=== PATIENT | female | born 1940 | race Caucasian/White ===

== ENCOUNTER → 2016-10-15 12:38 | Outpatient (CLI) | payer MEDICARE, BC | END | disposition home or self-care (01) | LOC: D.RAD 12:38 | DX: T17.928A Food in respiratory tract, part unspecified causing other injury, initial encounter (principal) ==

== ENCOUNTER → 2016-10-21 13:34 | Outpatient (CLI) | payer MEDICARE, BC | END | disposition home or self-care (01) | LOC: D.RT 13:34 | DX: J44.9 Chronic obstructive pulmonary disease, unspecified (principal) ==

== ENCOUNTER → 2017-11-17 09:37 | Outpatient (CLI) | payer MEDICARE, BC | END | disposition home or self-care (01) | LOC: D.RT 09:37 | DX: J44.9 Chronic obstructive pulmonary disease, unspecified (principal) ==

== ENCOUNTER → 2018-10-16 13:11 | Outpatient (CLI) | payer MEDICARE, BC | END | disposition home or self-care (01) | LOC: D.RAD 13:11 → D.RT 15:30 | PROVIDERS: ATTEND Internal Medicine Pulmonary Disease | DX: J44.9 Chronic obstructive pulmonary disease, unspecified (principal) ==

== ENCOUNTER → 2019-12-07 11:56 | Outpatient (CLI) | payer MEDICARE, BC | END | disposition home or self-care (01) | LOC: D.LAB 11:56 | PROVIDERS: ATTEND Internal Medicine Pulmonary Disease | DX: Z11.59 Encounter for screening for other viral diseases (principal) ==

== ENCOUNTER → 2019-12-10 12:02 | Outpatient (CLI) | payer MEDICARE, BC | END | disposition home or self-care (01) | LOC: D.RT 12:02 | PROVIDERS: ATTEND Internal Medicine Pulmonary Disease | DX: Z11.59 Encounter for screening for other viral diseases (principal) ==

== ENCOUNTER 2020-07-26 13:27 | Inpatient (IN) | payer MEDICARE, BC ==
[~2020-07-26] VITALS: Ht 162.6 cm; Wt 68.0 kg
[2020-07-26 13:42] VITALS: BP 144/72
[2020-07-26 14:12] LABS: BASOPHILS 0.3 % (0-2); EOSINOPHILS 0.3 % (0-7); HEMATOCRIT 46.3 % (36.0-48.0); HEMOGLOBIN 15.5 g/dL (12-16); LYMPHOCYTES 5.2 % (15-50); MCH 32.4 pg (26.0-34.0); MCHC 33.4 g/dL (31.0-37.0); NEUTROPHILS 89.2 % (40-80); PLATELET COUNT 245 10x3/uL (130-400); RBC 4.77 10x6/uL (4.00-5.40); RDW 12.6 % (11.5-14.5); WBC 14.5 10x3/uL (4.8-10.8)
[2020-07-26] MEDS ORDERED: FLUTICASONE PRO16 GM NS (14:17)
[2020-07-26] MEDS ORDERED: TRELEGY ELLIPT1 EACH (14:17)
[2020-07-26] MEDS ORDERED: IPRAT-ALBUT 0.5-3 ML (14:17)
[2020-07-26] MEDS ORDERED: BUMETANIDE1 MG (14:18)
[2020-07-26] MEDS ORDERED: PREDNISONE10 MG (14:19)
[2020-07-26] MEDS ORDERED: MUCINEX DM ER1 EAC1 (14:19)
[2020-07-26] MEDS ORDERED: KLOR-CON 1010 MEQ (14:19)
[2020-07-26 14:20] LABS: CALC OSMOLALITY 278 mosm/kg (275-300); CALCIUM 9.7 mg/dL (8.5-10.1); CARBON DIOXIDE 33.2 mmol/L (21.0-32.0); CHLORIDE - SERUM 103 mmol/L (98-107); CREATININE - SERUM 0.9 mg/dL (0.6-1.3); GLUCOSE 133 mg/dL (74-106); SODIUM 139 mmol/L (136-145); UREA NITROGEN 10 mg/dL (7-18); eGFR NON AFRICAN AMERICAN 64 mL/min (90-120)
[2020-07-26 14:23] LABS: APTT 22.4 SECONDS (22.8-39.4); INR 1.07 (0.85-1.17); PROTIME 12.8 SECONDS (11.6-15.0)
[2020-07-26 14:24] LABS: D-DIMER-QUANTITATIVE 1.08 ug/mLFEU (0.20-0.54)
[2020-07-26 14:57] LABS: ALBUMIN 3.8 g/dL (3.4-5.0); ALKALINE PHOSPHATASE 55 U/L (30-120); ALT (SGPT) 51 U/L (10-68); BILIRUBIN - TOTAL 0.65 mg/dL (0.2-1.3); CKMB 2.5 U/L (0.0-3.6); CREATINE KINASE 138 UL (21-215); PRO BNP 412 pg/mL (0-450); PROTEIN - SERUM 7.5 g/dL (6.4-8.2)
[2020-07-26 15:01] LABS: TROPONIN-I 0.189 ng/mL (0.000-0.060)
--- NOTE | 2020-07-26 19:10 | NUR ---
REPORT RECEIVED FROM DARÍO WEST PT ON BEDSIDE COMMODE, URINATING. SHE IS ON 6L NC, STATES SHE NORMALLY IS ON 5L AT HOME. ON PHOTOGRAMMETRIC TECHNICIAN, SINUS RHYTHM WITH RATE OF 95. CALL LIGHT WITHIN REACH, BED LOW.
--- NOTE | 2020-07-26 19:30 | NUR ---
PT OFF OF BEDSIDE COMMODE
[2020-07-26 20:00] VITALS: BP 130/79
[2020-07-26 20:15] LABS: CKMB 3.4 U/L (0.0-3.6); CREATINE KINASE 173 UL (21-215)
[2020-07-26 20:16] LABS: TROPONIN-I 0.274 ng/mL (0.000-0.060)
[2020-07-26 21:00] VITALS: BP 129/99
[2020-07-26 22:00] VITALS: BP 137/74
[2020-07-26 23:00] VITALS: BP 130/69
[2020-07-27] VITALS (10 sets, daily range): BP systolic 104–154; BP diastolic 55–93; BMI 25.8
[2020-07-27 03:17] LABS: CKMB 3.9 U/L (0.0-3.6); CREATINE KINASE 171 UL (21-215)
[2020-07-27 03:20] LABS: TROPONIN-I 0.189 ng/mL (0.000-0.060)
--- NOTE | 2020-07-27 04:45 | NUR ---
PT UP TO BEDSIDE COMMODE WITH STEADY GAIT. CHANGED OUT OF CLOTHING TO HOSPITAL GOWN. CALL LIGHT WITHIN REACH, PT STATES SHE WILL CALL WHEN SHE IS READY.
--- NOTE | 2020-07-27 04:55 | NUR ---
PT ASSISTED BACK IN BED, CLEAR YELLOW URINE VOIDED. SMALL BM.
--- NOTE | 2020-07-27 07:40 | NUR ---
PATIENT SITTING UP IN BED, AWAKE AND ALERT, ORIENTED X 4, WATCHING TV. NO DISTRESS NOTED. CALL ADAMS IN REACH, SIDE RAILS UP X 2, BED IN LOW POSITION. DENIES ANY NEEDS AT THIS TIE.
[2020-07-27 08:46] LABS: ANION GAP 6.5 mmol/L (8-16); BASOPHILS 0.1 % (0-2); CALCIUM 9.2 mg/dL (8.5-10.1); CREATININE - SERUM 0.8 mg/dL (0.6-1.3); EOSINOPHILS 0 % (0-7); HEMATOCRIT 45.5 % (36.0-48.0); HEMOGLOBIN 15.3 g/dL (12-16); LYMPHOCYTES 4.7 % (15-50); MCH 32.4 pg (26.0-34.0); MCHC 33.6 g/dL (31.0-37.0); MCV 96.5 fL (80.0-100.0); MEAN PLATELET VOLUME 8.4 fL (7.4-10.4); MONOCYTES 7.5 % (2-11); NEUTROPHILS 87.7 % (40-80); PLATELET COUNT 258 10x3/uL (130-400); POTASSIUM - SERUM 3.5 mmol/L (3.5-5.1); RBC 4.71 10x6/uL (4.00-5.40); RDW 12.7 % (11.5-14.5)
[2020-07-27 10:06] LABS: CKMB 4.8 U/L (0.0-3.6)
[2020-07-27 10:09] LABS: CREATINE KINASE 216 UL (21-215)
[2020-07-27 10:14] LABS: TROPONIN-I 0.215 ng/mL (0.000-0.060)
--- NOTE | 2020-07-27 12:23 | NUR ---
PATIENT ARRIVE TO FLOOR.
[2020-07-27] MEDS ORDERED: ISOSORBIDE MONO10 MG PO (13:25)
[2020-07-27] MEDS ORDERED: VITAMIN D325 MC1 PO (13:26)
[2020-07-27] MEDS ORDERED: PLAVIX75 MG PO (13:27)
[2020-07-27] MEDS ORDERED: ASPIRIN81 MG PO (13:27)
[2020-07-27] MEDS ORDERED: COLACE100 MG PO (13:27)
--- NOTE | 2020-07-27 19:18 | NUR ---
INITIAL ROUNDS COMPLETED. PT DENIES ANY DISCOMOFRT. SR UP X1, CALL LIGHT WITHIN REACH.
--- NOTE | 2020-07-27 21:37 | NUR ---
ASSESSMENT COMPLETED [id number] HRS. SR PER CM HR 93. VSS. ALERT AND ORIENTED TO PERSON,PLACE AND TIME. TRIVEDI. PALPABLE PERIPHERAL PULSES. O2 6LNC. LUNGS DIMINISHED IN BASES BILAT. ABD SOFT WITH ACTIVE BS NOTED. IV TO LAC SL. PM FSBS 135. NO COVERAGE NEEDED. PT CURRENTLY WATCHING TV. SR UP X1, CALL LIGHT WITHIN REACH.
[2020-07-27] MEDS ORDERED: BENADRYL25 MG PO (21:51)
[2020-07-27] MEDS ORDERED: ACETAMINOPHEN500 M1 PO (21:51)
--- NOTE | 2020-07-27 22:41 | NUR ---
SPOKE WITH DR CUELLAR AT 2200 HRS REGARDING PT'S REQUEST FOR HER PLAVIX, BABY ASA AND TYLENOL PM. NEW ORDERS RECEIVED AND NOTED.
[2020-07-28 00:13] VITALS: BP 137/67
--- NOTE | 2020-07-28 00:16 | NUR ---
PT RESTING WITH EYES CLOSED. RESP EVEN AND REGULAR. CALL LIGHT WITHIN REACH.
--- NOTE | 2020-07-28 02:08 | NUR ---
PT RSETING WITH EYES CLOSED. RESP EVEN AND REGULAR. SR UP X1, CALL LIGHT WITHIN REACH.
[2020-07-28 04:00] VITALS: BP 127/72
--- NOTE | 2020-07-28 04:14 | NUR ---
PT RESTING WITH EYES CLOSED. RESP EVEN AND REGULAR. SR UP X1,CALL LIGHT WITHIN REACH.
--- NOTE | 2020-07-28 06:05 | NUR ---
PT RESTED WELL DURING SHIFT. AM FSBS 140. NO COVERAGE NECESSARY. NEEDS MET; WILL CONTINUE TO MONITOR.
--- NOTE | 2020-07-28 07:11 | NUR ---
RECEIVE SHIFT REPORT. UP IN BATHROOM. NO ASSIST. DOING WELL. DENIES ANY NEEDS AT THIS TIME. STATES SHE HAD A GOOD SLEEP LASTNIGHT. WILL CONTINUE POC AND SAFETY PRECAUTIONS.
[2020-07-28 08:16] LABS: BASOPHILS 0 % (0-2); EOSINOPHILS 0 % (0-7); HEMATOCRIT 44.8 % (36.0-48.0); HEMOGLOBIN 15.1 g/dL (12-16); LYMPHOCYTES 6.5 % (15-50); MCH 32.6 pg (26.0-34.0); MCHC 33.7 g/dL (31.0-37.0); MCV 96.7 fL (80.0-100.0); MEAN PLATELET VOLUME 8.7 fL (7.4-10.4); MONOCYTES 2.3 % (2-11); NEUTROPHILS 91.2 % (40-80); PLATELET COUNT 275 10x3/uL (130-400); RBC 4.64 10x6/uL (4.00-5.40); RDW 12.2 % (11.5-14.5)
[2020-07-28 08:20] LABS: WBC 9.8 10x3/uL (4.8-10.8)
[2020-07-28 08:23] LABS: ANION GAP 8.4 mmol/L (8-16); CALCIUM 9.1 mg/dL (8.5-10.1); CREATININE - SERUM 0.8 mg/dL (0.6-1.3); POTASSIUM - SERUM 3.4 mmol/L (3.5-5.1)
[2020-07-28 09:00] VITALS: BP 121/57
[2020-07-28 09:48] LABS: CKMB 4.5 U/L (0.0-3.6); TROPONIN-I 0.044 ng/mL (0.000-0.060)
[2020-07-28 12:50] VITALS: BP 117/65
[2020-07-28 14:28] VITALS: Ht 162.6 cm; Wt 68.0 kg
[2020-07-28 16:18] VITALS: BP 133/85
[2020-07-28 20:00] VITALS: BP 159/72
[2020-07-29] VITALS: BP 115/58
--- NOTE | 2020-07-29 03:20 | NUR ---
I have reviewed this patient and I concur with the Shift Assessment completed by the Licensed Practical Nurse today this shift.
[2020-07-29 04:00] VITALS: BP 158/77
[2020-07-29 04:31] LABS: BASOPHILS 0.1 % (0-2); EOSINOPHILS 0 % (0-7); HEMATOCRIT 44.1 % (36.0-48.0); HEMOGLOBIN 15.1 g/dL (12-16); LYMPHOCYTES 9.3 % (15-50); MCHC 34.2 g/dL (31.0-37.0); MCV 96.5 fL (80.0-100.0); MEAN PLATELET VOLUME 8.3 fL (7.4-10.4); MONOCYTES 7.8 % (2-11); NEUTROPHILS 82.8 % (40-80); PLATELET COUNT 282 10x3/uL (130-400); RBC 4.57 10x6/uL (4.00-5.40); RDW 12.3 % (11.5-14.5)
[2020-07-29 04:55] LABS: ANION GAP 10.7 mmol/L (8-16); CALCIUM 8.9 mg/dL (8.5-10.1); CREATININE - SERUM 0.9 mg/dL (0.6-1.3); POTASSIUM - SERUM 3.7 mmol/L (3.5-5.1)
[2020-07-29 08:14] VITALS: BP 146/67
--- NOTE | 2020-07-29 09:07 | NUR ---
PT AWAKE AND ALERT, TALKING ON CELL PHONE, AAOX3, PLEASANT. AM MEDS GIVEN AT THIS TIME. NO PAIN OR NEEDS VOICED AT THIS TIME. RR EVEN NON LABORED, O2 IN PLACE. CLWR.
[2020-07-29 11:37] VITALS: BP 110/63
[2020-07-29 16:00] VITALS: BP 149/66
--- NOTE | 2020-07-29 16:01 | NUR ---
PT SITTING ON SIDE OF BED WATCHING TV AT THIS TIME. RR EVEN NON LABORED, O2 IN PLACE. PT TALKATIVE, DENIES ANY PAIN. SCHEDULED MEDS GIVEN. NO FURTHER NEEDS VOICED. CLWR.
[2020-07-29 20:00] VITALS: BP 122/61
[2020-07-30] VITALS: BP 126/68
--- NOTE | 2020-07-30 01:04 | NUR ---
I have reviewed this patient and I concur with the Shift Assessment completed by the Licensed Practical Nurse today this shift.
[2020-07-30 04:00] VITALS: BP 145/61
[2020-07-30 06:25] LABS: BASOPHILS 0.1 % (0-2); EOSINOPHILS 0 % (0-7); HEMATOCRIT 43.5 % (36.0-48.0); HEMOGLOBIN 14.9 g/dL (12-16); LYMPHOCYTES 7.1 % (15-50); MCHC 34.2 g/dL (31.0-37.0); MCV 96.6 fL (80.0-100.0); MEAN PLATELET VOLUME 8.3 fL (7.4-10.4); MONOCYTES 6.7 % (2-11); NEUTROPHILS 86.1 % (40-80); PLATELET COUNT 307 10x3/uL (130-400); RBC 4.51 10x6/uL (4.00-5.40); RDW 12.2 % (11.5-14.5)
[2020-07-30 06:57] LABS: ANION GAP 6.8 mmol/L (8-16); CALCIUM 8.8 mg/dL (8.5-10.1); CARBON DIOXIDE 37.8 mmol/L (21.0-32.0); CREATININE - SERUM 0.8 mg/dL (0.6-1.3); POTASSIUM - SERUM 3.6 mmol/L (3.5-5.1)
[2020-07-30 09:00] VITALS: BP 164/90
--- NOTE | 2020-07-30 09:15 | NUR ---
AM MEDS GIVEN AT THIS TIME. RR EVEN NON LABORED WITH O2 IN PLACE VIA NC. PT AAOX4, PLEASANT AND TALKATIVE. PT STATES TO FEEL BETTER THIS MORNING AND DENIES ANY NEEDS AT THIS TIME. CLWR.
[2020-07-30 12:00] VITALS: BP 126/48
[2020-07-30 20:00] VITALS: BP 140/69
[2020-07-31 05:55] VITALS: BP 141/80
[2020-07-31 07:25] LABS: BASOPHILS 0.1 % (0-2); EOSINOPHILS 0 % (0-7); HEMATOCRIT 44.2 % (36.0-48.0); LYMPHOCYTES 10.6 % (15-50); MCH 32.5 pg (26.0-34.0); MCV 95.8 fL (80.0-100.0); MEAN PLATELET VOLUME 8.1 fL (7.4-10.4); MONOCYTES 10.1 % (2-11); NEUTROPHILS 79.2 % (40-80); PLATELET COUNT 314 10x3/uL (130-400); RBC 4.62 10x6/uL (4.00-5.40); RDW 12.3 % (11.5-14.5); WBC 7.4 10x3/uL (4.8-10.8)
[2020-07-31 07:41] LABS: ANION GAP 7.7 mmol/L (8-16); CALCIUM 9.1 mg/dL (8.5-10.1); CARBON DIOXIDE 38.1 mmol/L (21.0-32.0); CREATININE - SERUM 0.8 mg/dL (0.6-1.3); POTASSIUM - SERUM 3.8 mmol/L (3.5-5.1)
--- NOTE | 2020-07-31 08:26 | NUR ---
AM MEDS GIVEN AT THIS TIME. PT AWAKE AND ALERT, ANSWERS QUESTIONS APPROP. PT SITTING ON SIDE OF BED, RR EVEN NON LABORED WITH O2 IN PLACE. NO PAIN OR NEEDS VOICED. CLWR.
[2020-07-31 08:50] VITALS: BP 130/74
[2020-07-31 13:00] VITALS: BP 124/50
--- NOTE | 2020-07-31 13:39 | NUR ---
Nutrition Reassessment/Follow-up: Pt reports appetite is ok. Ate ~75% of breakfast this AM. Pt does not think that she needs to be on a diabetic diet. Noted diet was changed to diabetic by Dr. Raza on 07/29. Explained to pt that diet is an order and will need to discuss change with MD. Reports some indigestion and loose stools. Diet: Diabetic PO intake: 75% avg x 6 meals No new wt; last wt: 150# (07/28) Labs noted: Glu 121 Meds noted: Lasix, Solumedrol, Micro K, electrolyte protocol Nutrition Intervention: -Nutrition needs, Dx, & goals unchanged since initial assessment. -Encourage PO intake and honor food preferences within diet restrictions. -Monitor wt. -RD will follow up within 5-7 days.
--- NOTE | 2020-07-31 14:33 | NUR ---
REHAB PRESCREEN RECEIVED. I HAVE EXPLAINED TO RENEE BAPTISTE RN CM THAT IT STANDS RIGHT NOW, THE REHAB IS FULL. WE DON'T CURRENTLY FORSEE HAVING ANOTHER OPEN BED UNTIL TUESDAY OF NEXT WEEK. THIS CAN ALWAYS CHANGE, SO WE WILL PROCEED WITH THE CHART SCREEN AT THIS TIME. SHE STATED SHE WOULD LET ME KNOW IF THE PATIENT WERE TO PLAN DISCHARGE SOMEWHERE ELSE. THANK YOU FOR THE REFERRAL. MALINI ALLISON RN CLINICAL LIAISON, INPATIENT REHAB.
[2020-07-31 15:00] VITALS: BP 156/103
--- NOTE | 2020-07-31 17:05 | NUR ---
OT NOTE: PT COMPLETED SUPINE TO SIT WITH SBA-CGA. PT COMPLETED SIT TO STAND WITH SBA-CGA. PT COMPLETED ADL MOB WITH SBA-CGA. PT COMPLETED TOILETING WITH SBA. PT COMPLETED TOILETING HYGIENE WITH SBA. PT COMPLETED HAIR GROOMING WITH SBA. PT COMPLETED HAND HYGIENE WITH SBA. PT COMPLETED HALINA SOCKS WITH SBA. [phone] JUDE DAVIS COTA
--- NOTE | 2020-07-31 19:52 | NUR ---
REPORT RECEIVED. PT A&O, UP IN BED ON PHONE WITH GRANDKLEBER. NO S/S OF DISTRESS OBSERVED. RR EVEN & UNLABORED ON 4L. BED LOCKED AND LOWERED, CL IN REACH. ASSESSMENT COMPLETE. WILL CONT POC.
[2020-07-31 21:34] VITALS: BP 153/75
[2020-08-01 03:12] VITALS: BP 140/76
--- NOTE | 2020-08-01 07:52 | NUR ---
AM ROUNDING DONE WITH PATIENT HOPING TO GO TO REHAB TODAY. DR CRANDALL AT BEDSIDE. GLASSES ON. LEFT FA SEEN WITH SALINE LOCK AND SWAB CAP. ON 4L PER NC. PATIENT IS STRICT I AND O. DENIES ANY NEEDS AT THIS TIME, CALL LIGHT IN USE.
[2020-08-01 09:00] VITALS: BP 137/69
[2020-08-01 12:00] VITALS: BP 141/69
--- NOTE | 2020-08-01 16:54 | NUR ---
OT NOTE: PT COMPLETED ADL MOBILITY WITH SPV. PT COMPLETED BED MOBILITY WITH SPV. PT COMPLETED UB HYGIENE AT SINK WITH SPV. PT COMPLETED SIT TO STAND WITH SPV. [phone] THANK YOU,JOE REED
--- NOTE | 2020-08-01 19:48 | NUR ---
PT IN BED, AAO X 4, RESP EVEN AND UNLABORED, NO DISTRESS NOTED, CL IN REACH, SR UP X 2.
[2020-08-01 20:59] VITALS: BP 158/67
[2020-08-02 05:02] VITALS: BP 147/70
--- NOTE | 2020-08-02 07:37 | NUR ---
AM ROUNDING DONE WITH PATIENT IN THE RESTROOM. DENIES NEEDS THROUGH THE DOOR. ON 4L PER NC. ON EP, LAB VALUES ARE WNL. PATIENT IS UP AD [place].
[2020-08-02 08:06] VITALS: BP 131/63
[2020-08-02 12:52] VITALS: BP 123/58
--- NOTE | 2020-08-02 14:50 | NUR ---
RESTING WITH EYES CLOSED, HOB UP AT 30 DEGREES. RESP SEEM EVEN.
[2020-08-02 15:32] VITALS: BP 107/56
--- NOTE | 2020-08-02 18:13 | NUR ---
STILL SITTING UP IN THE CHAIR PAST EATING SUPPER. NO NEEDS VOICED.
--- NOTE | 2020-08-02 19:00 | NUR ---
REPORT RECEIVED. PATIENT IS SITTING UP IN CHAIR. NO S/S OF DISTRESS OBSERVED, RR EVEN AND UNLABORED ON 4L O2 VIA NC. PIV TO LT FA, SL. PATIENT DENIES NEEDS AT THIS TIME. CL IN REACH, BED LOCKED AND LOWERED. WILL CPOC.
[2020-08-02 20:42] VITALS: BP 132/72
[2020-08-03 16:37] VITALS: BP 138/64
[2020-08-03 20:35] VITALS: BP 122/65
[2020-08-04 05:28] VITALS: BP 130/70
--- NOTE | 2020-08-04 07:20 | NUR ---
RECIEVE REPORT. ALERT AND ORIENTED X4. SITTING UP IN CHAIR WATCHING TV. DENIES ANY NEEDS. CONTINUE PLAN OF CARE AND SAFETY PRECAUTIONS. AT BEDSIDE.
[2020-08-04 09:00] VITALS: BP 111/47
[2020-08-04 12:00] VITALS: BP 117/69
--- NOTE | 2020-08-04 14:03 | NUR ---
OT NOTE: PT DOING WELL TODAY.. SITTING UP IN CHAIR; ABLE TO AMB TO BATHROOM WITH WALKER AND SBA; SBA WITH TOILET TRANSFERS AND HYGIENE; SETUP TO HALINA GOWN; IN ROOM AMBULATION WITH REGULAR RW AND SBA. PT ABLE TO DEMONSTRATED BED MOB INCLUDING ROLLING IN BED AND SUPINE TO SIT WITH SBA. ROMEL CALVO, OTR/L [phone]
--- NOTE | 2020-08-04 19:35 | NUR ---
RECEIVED BEDSIDE REPORT. ROUNDING COMPLETE. PATIENT IS ALERT AND ORIENTED, RESTING IN BED. RESPIRATIONS ARE EVEN AND UNLABORED. NO S/S OF DISTRESS. NO C/O PAIN. NEEDS MET. CALL LIGHT WITHIN REACH. WILL CPOC.
[2020-08-04 21:29] VITALS: BP 124/63
[2020-08-05 05:10] VITALS: BP 131/67
--- NOTE | 2020-08-05 07:20 | NUR ---
RECIEVE REPORT. ALERT AND ORIENTED X4. SITTING UP IN CHAIR. AT BEDSIDE. PLAN TO DISCHARGE TO REHAB TODAY. DENIES ANY NEEDS. CONTINUE PLAN OF CARE AND SAFETY PRECAUTIONS.
[2020-08-05] MEDS ORDERED: PERFOROMIS20 MCG/21 INH (07:45)
[2020-08-05] MEDS ORDERED: COREG6.25 MG PO (07:45)
[2020-08-05] MEDS ORDERED: XOPENEX IN0.31 MG/3 INH (07:45)
[2020-08-05] MEDS ORDERED: ASPIRIN81 MG PO (07:46)
[2020-08-05] MEDS ORDERED: DALIRESP250 MCG PO (07:46)
[2020-08-05 08:00] VITALS: BP 140/71
--- NOTE | 2020-08-05 15:18 | NUR ---
NOTIFIED PATIENT'S NURSE AND KEEGAN OSEGUERABUNDLER THAT PATIENT IS ACCEPTED TO REHAB ROOM 1109.- JAZZMINE WALL LPN, CLINICAL LIAISON
--- NOTE | 2020-08-05 15:59 | MORECARE ---
CASE MANAGEMENT DISCHARGE SUMMARY PATIENT: BRIAN MIKE UNIT: [id number] ADM DATE: 07/26/20 AGE: 80 : 40 SEX: F ROOM/BED: D.2131 AUTHOR: YASH,DOC PHYSICIAN: REFERRING PHYSICIAN: GABINO CUELLAR MD DATE OF SERVICE: 08/05/20 Case Management Discharge Planning Summary COMMENTS ENTERED DATE: 08/01/20 16:31 CT COMMENT TYPE: Discharge Planning REVIEWER: Tiana Apodaca Received call from [facility] stating that pt is too high functioning to qualify for in patient rehab. Suggested that patient be discharged with home health. DCP REVIEW SUMMARY ANTICIPATED D/C DATE: 08/05/2020 EXPECTED LOS : 10 CASE STATUS: DCP Initiated INITIAL REVIEW: 07/26/2020 INITIAL REVIEWER: Tiana Apodaca FINAL DISCHARGE DISPOSITION: 63 : Discharged/Trans to [facility] ([facility]) FINAL REVIEWER: FINAL REVIEW DATE: DCP [facility] Questions & Answers QUESTION: ANSWER : PATIENT: BRIAN MIKE ENCOUNTER: [id number] MEDICAL RECORD#: [id number] ADMISSION DATE: 07/26/2020 DISCHARGE DATE: ATTENDING MD: GABINO METCALF : AGE: 80 MARITAL STATUS: W DC PLAN ID: [id number] FACILITY: [facility] PRINTED ON: 08/05/20 15:59 CT All edits/amendments must be made on the electronic document DICTATION DATE: 08/05/201558 DESKTOP OPERATOR: BRONSON 08/05/20 155 RPT#: [id number] DC DATE: STATUS: ADM IN [facility] [address] [place] [address] END OF REPORT
--- NOTE | 2020-08-05 16:12 | MORECARE ---
CASE MANAGEMENT DISCHARGE SUMMARY PATIENT: BRIAN MIKE UNIT: [id number] ADM DATE: 07/26/20 AGE: 80 : 40 SEX: F ROOM/BED: D.6097 AUTHOR: YASH,DOC PHYSICIAN: REFERRING PHYSICIAN: GABINO CUELLAR MD DATE OF SERVICE: 08/05/20 Case Management Discharge Planning Summary COMMENTS ENTERED DATE: 08/05/20 15:53 CT COMMENT TYPE: Discharge Planning REVIEWER: Tiana Apodaca Pt accepted to inpt rehab at [facility] today. Pt has participated therapy as a inpt and expressed a desire to go to inpt rehab for strengthening and endurance prior to discharging to home. Pt was independent at home prior to admission and desires to return home. ENTERED DATE: 08/01/20 16:31 CT COMMENT TYPE: Discharge Planning REVIEWER: Tiana Apodaca Received call from [facility] stating that pt is too high functioning to qualify for in patient rehab. Suggested that patient be discharged with home health. MNP REVIEW SUMMARY ANTICIPATED D/C DATE: 08/05/2020 EXPECTED LOS : 10 CASE STATUS: DCP Initiated INITIAL REVIEW: 07/26/2020 INITIAL REVIEWER: Tiana Apodaca FINAL DISCHARGE DISPOSITION: 63 : Discharged/Trans to [facility] ([facility]) FINAL REVIEWER: FINAL REVIEW DATE: [facility] Focus Questions & Answers QUESTION: ANSWER : PATIENT: BRIAN MIKE ENCOUNTER: [id number] MEDICAL RECORD#: [id number] ADMISSION DATE: 07/26/2020 DISCHARGE DATE: ATTENDING MD: GABINO METCALF : AGE: 80 MARITAL STATUS: W DC PLAN ID: [id number] FACILITY: [facility] PRINTED ON: 08/05/20 16:12 CT All edits/amendments must be made on the electronic document DICTATION DATE: 08/05/201611 GARDENING INSTRUCTOR: BRONSON 08/05/201611 RPT#: [id number] DC DATE: STATUS: ADM IN [facility] [address] [facility] [place] [address] END OF REPORT
--- NOTE | 2020-08-05 16:36 | NUR ---
ALERT AND ORIENTED X4. SITTING UP IN CHAIR. DISCHARGE INSTRUCTIONS GIVEN VERBALLY AND WRITTEN. DISCHARGE PAPERS SIGNED ON CHART. DC LT FA IV TIP INTACT. CALL REPORT TO DARÍO MURRAY IN REHAB. DC TO REHAB ROOM 1106.
--- NOTE | 2020-08-05 16:51 | MORECARE ---
CASE MANAGEMENT DISCHARGE SUMMARY PATIENT: BRIAN MIKE UNIT: [id number] ADM DATE: 07/26/20 AGE: 80 : 40 SEX: F ROOM/BED: D.2137 AUTHOR: YASH,DOC PHYSICIAN: REFERRING PHYSICIAN: GABINO CUELLAR MD DATE OF SERVICE: 08/05/20 Case Management Discharge Planning Summary COMMENTS ENTERED DATE: 08/05/20 15:53 CT COMMENT TYPE: Discharge Planning REVIEWER: Tiana Apodaca Pt accepted to inpt rehab at [facility] today. Pt has participated therapy as a inpt and expressed a desire to go to inpt rehab for strengthening and endurance prior to discharging to home. Pt was independent at home prior to admission and desires to return home. ENTERED DATE: 08/01/20 16:31 CT COMMENT TYPE: Discharge Planning REVIEWER: Tiana Apodaca Received call from [facility] stating that pt is too high functioning to qualify for in patient rehab. Suggested that patient be discharged with home health. VAP REVIEW SUMMARY ANTICIPATED D/C DATE: 08/05/2020 EXPECTED LOS : 10 CASE STATUS: DCP Initiated INITIAL REVIEW: 07/26/2020 INITIAL REVIEWER: Tiana Apodaca FINAL DISCHARGE DISPOSITION: 63 : Discharged/Trans to [facility] ([facility]) FINAL REVIEWER: FINAL REVIEW DATE: [facility] Focus Questions & Answers QUESTION: ANSWER : PATIENT: BRIAN MIKE ENCOUNTER: [id number] MEDICAL RECORD#: [id number] ADMISSION DATE: 07/26/2020 DISCHARGE DATE: 08/05/2020 ATTENDING MD: GABINO METCALF : AGE: 80 MARITAL STATUS: W DC PLAN ID: [id number] FACILITY: [facility] PRINTED ON: 08/05/20 16:51 CT All edits/amendments must be made on the electronic document DICTATION DATE: 08/05/201650 PATHOLOGIST ASSISTANT: BRONSON 08/05/201650 RPT#: [id number] DC DATE:08/05/20 STATUS: DIS IN [facility] [address] [place] [address] END OF REPORT
--- NOTE | 2020-08-05 21:24 | NUR ---
OT NOTE: PT COMPLETED HYGIENE AND GROOMING TASKS AT SINK LEVEL WITH SPV. PT COMPLETED ADL MOB WITH SBA. PT COMPLETED TOILETING TASKS WITH SBA-SPV. PT COMPLETED DOFF HALINA SOCK WITH SBA. PT DOES HAVE PAIN IN PATELLA THAT LIMITS AROM. [phone] THANK YOU,JOE REED
--- NOTE | 2020-08-07 20:49 | MORECARE ---
CASE MANAGEMENT DISCHARGE SUMMARY PATIENT: BRIAN MIKE UNIT: [id number] ADM DATE: 07/26/20 AGE: 80 : 40 SEX: F ROOM/BED: D.2137 AUTHOR: YASH,DOC PHYSICIAN: REFERRING PHYSICIAN: GABINO CUELLAR MD DATE OF SERVICE: 08/07/20 Case Management Discharge Planning Summary COMMENTS ENTERED DATE: 08/05/20 15:53 CT COMMENT TYPE: Discharge Planning REVIEWER: Tiana Apodaca Pt accepted to inpt rehab at [facility] today. Pt has participated therapy as a inpt and expressed a desire to go to inpt rehab for strengthening and endurance prior to discharging to home. Pt was independent at home prior to admission and desires to return home. ENTERED DATE: 08/01/20 16:31 CT COMMENT TYPE: Discharge Planning REVIEWER: Tiana Apodaca Received call from [facility] stating that pt is too high functioning to qualify for in patient rehab. Suggested that patient be discharged with home health. NVP REVIEW SUMMARY ANTICIPATED D/C DATE: 08/05/2020 EXPECTED LOS : 10 CASE STATUS: DCP Initiated INITIAL REVIEW: 07/26/2020 INITIAL REVIEWER: Tiana Apodaca FINAL DISCHARGE DISPOSITION: 63 : Discharged/Trans to [facility] FINAL REVIEWER: FINAL REVIEW DATE: [facility] Questions & Answers QUESTION: ANSWER : PATIENT: BRIAN MIKE ENCOUNTER: [id number] MEDICAL RECORD#: [id number] ADMISSION DATE: 07/26/2020 DISCHARGE DATE: 08/05/2020 ATTENDING MD: GABINO METCALF : AGE: 80 MARITAL STATUS: W DC PLAN ID: [id number] FACILITY: [facility] PRINTED ON: 08/07/20 20:49 CT All edits/amendments must be made on the electronic document DICTATION DATE: 08/07/202048 MEDIA RELATIONS ASSOCIATE: BRONSON 08/07/202048 RPT#: [id number] DC DATE:08/05/20 STATUS: DIS IN [facility] [address] [place] [address] END OF REPORT
== END 2020-08-05 16:39 | DRG 193 ==
LOC: D.ER 13:27 → D.M2 20:06 → D.EDHOLD 20:06 → D.M2 07-27 11:27
PROVIDERS: Family Medicine; ADMIT Family Medicine; ATTEND Family Medicine
DX: J18.9 Pneumonia, unspecified organism (principal); J96.21 Acute and chronic respiratory failure with hypoxia; I50.33 Acute on chronic diastolic (congestive) heart failure; I11.0 Hypertensive heart disease with heart failure; I25.10 Atherosclerotic heart disease of native coronary artery without angina pectoris; I34.0 Nonrheumatic mitral (valve) insufficiency; R77.8 Other specified abnormalities of plasma proteins; J43.9 Emphysema, unspecified; K21.9 Gastro-esophageal reflux disease without esophagitis; M35.3 Polymyalgia rheumatica; R42 Dizziness and giddiness; Z87.891 Personal history of nicotine dependence

== ENCOUNTER 2020-08-05 17:04 | Inpatient (IN) | payer MEDICARE, BC ==
[~2020-08-05] VITALS: Ht 162.6 cm; Wt 70.3 kg
--- NOTE | ~2020-08-05 | RHP ---
PATIENT: BRIAN MIKE MEDICAL RECORD: [id number] ACCOUNT: [id number] [facility] Julito1109 : 40 ADMISSION DATE: 08/05/20 REHABILITATION HISTORY AND PHYSICAL EXAMINATION POST ADMISSION PHYSICIAN EXAMINATION POST ADMISSION PHYSICAL EXAMINATION AND HISTORY AND PHYSICAL ADMITTING DIAGNOSIS: Exacerbation of chronic obstructive pulmonary disease. HISTORY OF PRESENT ILLNESS: The patient is an 80-year-old female patient admitted with COPD. She presented via EMS on 07/26/2020 with shortness of breath, wheezing, peripheral edema that started 2 hours prior to arrival. She reports she was not able to get her home nebulizer to work. She received DuoNeb and Solu-Medrol en route. She was tachycardic and tachypneic. Upon arrival, she did report that her lower legs have been swollen. A D-dimer was ordered. Xopenex updrafts were ordered. Appropriate blood work was done. She had a normal CTA of the chest, which confirmed what appeared to be pneumonia on a chest x-ray that was also done. She was requiring 5-6 liters of O2. Remained tachycardic. She was admitted to the acute floor for further treatment and workup. Past medical history of coronary artery disease, COPD, right-sided heart failure, mitral valve prolapse, rheumatic fever. She is on home O2. The patient was seen and evaluated by pulmonary and cardiology throughout her stay. They stated that they started carvedilol for her tachycardia and demand ischemia. She was placed on IV steroids and IV antibiotics, placed on IV incentive spirometry. Cardiology saw her secondary to an elevated troponin, felt like this was added to a demand ischemia. No further cardiac workup was warranted. She continued to have dyspnea on exertion. Minimum sputum production. She has been placed on antibiotics that are now been changed to p.o. She will be on a steroid taper, diuresis with Bumex, pulmonary toilet. She does have a noted deconditioning from her recent stay secondary to her decreased strength and endurance. She is now mid to mod assist with functional mobility and ADLs, declined with physical therapy on the floor. She is going to require intensive therapy in collaboration with interdisciplinary team and I will get her back to her prior level of functioning. COMORBIDITIES: Include arthritis, coronary artery disease, CHF, COPD, decreased mobility, decreased physical functioning, emphysema, leukocytosis, pneumonia, and hypoxia. PAST MEDICAL HISTORY: Significant for coronary artery disease. She has got a history of arthritis, chronic back pain, COPD, pneumonia. PAST SURGICAL HISTORY: None. ALLERGIES: No known drug allergies. CURRENT MEDICATIONS: Include Daliresp 250 mcg daily. She is on Mucinex D 1 tab b.i.d., Colace 100 mg daily, Plavix 75 mg daily, vitamin D 1000 units daily, Bumex 1 mg daily, aspirin chewable 81 mg daily, carvedilol 6.25 mg b.i.d. with meals, Perforomist 20 mcg b.i.d., isosorbide 10 mg as needed, Xopenex updrafts, and Tylenol with Benadryl as needed. HABITS: Does have a history of tobacco and alcohol use. HISTORY AND PHYSICAL [id number] MALAGASYBRIAN JEF FAMILY HISTORY: Noncontributory. SOCIAL HISTORY: The patient hopes to return back home and get back to her prior level of functioning. REVIEW OF SYSTEMS: GENERAL: Does complain of weakness and fatigue. HEENT: Does complain of some cold, cough and congestion. CARDIOVASCULAR: Denies any chest. LUNGS: Does complain of shortness of breath. PHYSICAL EXAMINATION: VITAL SIGNS: Stable. She is afebrile. GENERAL: An elderly female, in no acute distress upon exam. HEENT: Normocephalic and atraumatic. Mucosa moist. NECK: Supple. No lymphadenopathy. LUNGS: Clear in the upper de [place] with decreased breath sounds in the bases. CARDIOVASCULAR: Regular rhythm. She does have a holosystolic murmur. ABDOMEN: Soft, benign, nondistended. Positive bowel sounds times 4. EXTREMITIES: No clubbing, cyanosis or edema. NEUROLOGIC: She does have some noted weakness. LABORATORY DATA: There are no current lab work on her at this time. 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 The patient has potential to make improvement. We instituted the following multidisciplinary therapies including, not limited to physical, occupational, respiratory, speech, nutritional services, prosthetics and orthotics. Given her complex medical condition and risks for more complications, rehabilitation services cannot be provided at a low level of care such as care home facility. PLAN: 1. Admit to [facility] for inpatient therapy to include the following disciplines; A. Physical therapy to improve gait, all transfer skills and bed mobility to a modified independent level. B. Occupational therapy to improve activities of daily living. C. Case management to help with discharge planning and placement options. D. Nutrition to assist with nutritional needs. E. Rehabilitation nursing to assist in monitoring the patient's underlying medical conditions and to assist with any type of bowel or bladder management. 2. The patient's current medication and medical care will be continued. 3. Will be placed on standard fall precautions. 4. The patient's estimated length of stay is approximately 7-10 days. 5. Discuss this patient during care team staff meeting this week. TRANSINT:[id number] Voice Confirmation ID: [id number] DOCUMENT ID: [id number] JESSICA notes whether there has been none or any medical/functional change since admission: - No change since preadmission screen. HISTORY AND PHYSICAL [id number] BRIAN MIKE attests patient continues to be appropriate for IRF: - Continues to be appropriate. GABINO PALOMINO MD CC: [id number] DICTATION DATE: 08/05/201807 AUTOMOTIVE SERVICE PORTER: 08/05/201937 ADM IN [facility] [address] [place] [address]
[~2020-08-05 17:04] MED LIST: ACETAMINOPHEN500 M1 PO; ASPIRIN81 MG PO; BENADRYL25 MG PO; BUMETANIDE1 MG; COLACE100 MG PO; COREG6.25 MG PO; DALIRESP250 MCG PO; FLUTICASONE PRO16 GM NS; IPRAT-ALBUT 0.5-3 ML; ISOSORBIDE MONO10 MG PO; KLOR-CON 1010 MEQ; MUCINEX DM ER1 EAC1; PERFOROMIS20 MCG/21 INH; PLAVIX75 MG PO; PREDNISONE10 MG; TRELEGY ELLIPT1 EACH; VITAMIN D325 MC1 PO; XOPENEX IN0.31 MG/3 INH
[2020-08-05 18:00] VITALS: BP 141/66; BMI 26.6
--- NOTE | 2020-08-05 18:52 | NUR ---
BEDSIDE REPORT COMPLETE. RECEIVED PT SITTING UP IN CHAIR. ALERT AND ORIENTED X4. DENIES ANY NEEDS OR PAIN. NO DISTRESS NOTED. CONTINUES ON O2/4L VIA NC. CALL LIGHT AND WATER WITHIN REACH. BRIGIDA ALARM ON. CPOC
[2020-08-05 22:01] VITALS: BP 141/66
--- NOTE | 2020-08-06 02:15 | NUR ---
PT LYING IN BED ON RIGHT SIDE EYES CLOSED SLEEPING. RR EVEN AND UNLABORED. CONTINUES ON O2/4L VIA NC. BRIGIDA ALARM ON
--- NOTE | 2020-08-06 05:31 | NUR ---
PT SITTING UP IN CHAIR WATCHING TV. DENIES ANY NEEDS OR PAIN. NO ACUTE CHANGES IN CONDITION THIS SHIFT. CALL LIGHT WITHIN REACH. BRIGIDA ALARM ON
[2020-08-06 07:30] LABS: BASOPHILS 0.1 % (0-2); EOSINOPHILS 0.8 % (0-7); HEMATOCRIT 44.4 % (36.0-48.0); HEMOGLOBIN 15.1 g/dL (12-16); LYMPHOCYTES 10.5 % (15-50); MCH 32.3 pg (26.0-34.0); MCHC 33.9 g/dL (31.0-37.0); MCV 95.3 fL (80.0-100.0); MEAN PLATELET VOLUME 8.5 fL (7.4-10.4); MONOCYTES 6.7 % (2-11); NEUTROPHILS 81.9 % (40-80); PLATELET COUNT 313 10x3/uL (130-400); RBC 4.66 10x6/uL (4.00-5.40); RDW 12.2 % (11.5-14.5)
[2020-08-06 07:53] LABS: ALBUMIN 3.2 g/dL (3.4-5.0); ALKALINE PHOSPHATASE 45 U/L (30-120); ALT (SGPT) 67 U/L (10-68); BILIRUBIN - TOTAL 0.41 mg/dL (0.2-1.3); CALC OSMOLALITY 282 mosm/kg (275-300); CALCIUM 10.2 mg/dL (8.5-10.1); CARBON DIOXIDE 37.9 mmol/L (21.0-32.0); CHLORIDE - SERUM 99 mmol/L (98-107); CREATININE - SERUM 0.7 mg/dL (0.6-1.3); GLUCOSE 93 mg/dL (74-106); SODIUM 141 mmol/L (136-145); UREA NITROGEN 18 mg/dL (7-18); eGFR NON AFRICAN AMERICAN 85 mL/min (90-120)
[2020-08-06 08:06] VITALS: BP 107/59
--- NOTE | 2020-08-06 08:22 | NUR ---
SHE TOOK HER MEDCIATIONS WITHOUT ANY PROBLEMS. SHE IS SETTING UP THE WHEELCHAIR. SHE DOES NOT WON'T THE ALARM ON. WILL SEE WHAT PT THINKS AFTER ASSESSING HER. THE CALL LIGHT IS WITHIN REACH AND THE CHAIR ALARM IS ON.
--- NOTE | 2020-08-06 11:23 | NUR ---
SHE SIGNED THE BED ALARM WAIVER. SHE IS WALKING AROUND IN THE ROOM WITH THE OXYGEN TUBING. THE CALL LIGHT IS WITHIN REACH AND SO IS HER ROOM PHONE.
[2020-08-06 13:44] VITALS: Ht 162.6 cm; Wt 70.3 kg
--- NOTE | 2020-08-06 14:50 | NUR ---
CARE TEAM MEETING: PATIENT IS NEW TO UNIT AND WILL BE RA AT NEXT MEETING. HER PCP IS DR. CRANDALL. SHE WOULD LIKE TO RETURN TO HER HOME AT TIME OF DISCHARGE. WILL CONTINUE TO FOLLOW WITH PATIENT.
[2020-08-06 16:26] VITALS: BP 122/58
--- NOTE | 2020-08-06 18:45 | NUR ---
BEDSIDE REPORT COMPLETE. RECEIVED PT SITTING UP IN BED. ALERT AND ORIENTED X4. DENIES ANY NEEDS OR PAIN. NO DISTRESS NOTED. CONTINUES ON O2/4L VIA NC. CALL LIGHT AND WATER WITHIN REACH. BED ALARM WAIVER SIGNED. CPOC
[2020-08-06 19:33] VITALS: BP 115/50
--- NOTE | 2020-08-07 05:25 | NUR ---
PT SITTING UP IN CHAIR WATCHING TV. DENIES ANY NEEDS OR PAIN. NO DISTRESS NOTED. NO ACUTE CHANGES IN CONDITION THIS SHIFT. CALL LIGHT WITHIN REACH.
--- NOTE | 2020-08-07 07:43 | NUR ---
PT RESTING IN BED WITH EYES OPEN CALL LIGHT IN REACH WILL MONITER
[2020-08-07 08:09] VITALS: BP 141/63
--- NOTE | 2020-08-07 10:00 | NUR ---
I have reviewed this patient and I concur with the Shift Assessment completed by the Licensed Practical Nurse today this shift.
--- NOTE | 2020-08-07 17:19 | NUR ---
PT UP IN CHAIR WATCHING TV CALL LIGHT IN REACH WILL MONITER
--- NOTE | 2020-08-07 19:13 | NUR ---
PM ROUNDS MADE, PT WATCHING TV, INFORMED PT THAT I WILL BE BACK SHORTLY TO DO ASSESSMENT, PT VERBALIZES UNDERSTANDING, DENIES NEEDS AT THIS TIME, FALL PRECAUTIONS IN PLACE
--- NOTE | 2020-08-07 19:51 | NUR ---
PT FINISHED RESP TREATMENT, REQUESTED AND ADM CLORASEPTIC, REQUESTS NIGHT MEDS EARLY SO SHE CAN GET SOME REST, INFORMED PT THAT I WILL BE BACK WITH THEM SHORTLY, PT VERBALIZES UNDERSTANDING, DENIES FURTHER NEEDS
--- NOTE | 2020-08-07 20:19 | NUR ---
PT COMING OUT OF BR, REPORTS VOIDING WITH NO DIFFICULTY AND HAVING A BM, ASSESSMENT PER FLOW SHEET, PT REFUSES TO LET ME OBS COCCYX, INFORMED PT THAT NEXT TIME SHE GETS UP TO BR, TO USE CALL LIGHT SO I CAN OBS COCCYX AREA, PT VERBALIZES UNDERSTANDING, FRESH H20 SERVED, DENIES FURTHER NEEDS OR PAIN AT THIS TIME
[2020-08-07 22:00] VITALS: BP 109/47
--- NOTE | 2020-08-07 22:30 | NUR ---
PT RESTING WITH EYES CLOSED, RESP QUIET, NO DISTRESS NOTED, LEFT UNDISTURBED AT THIS TIME, BED IN LOW POSITION, SIDE RAILS X 2, CALL LIGHT IN REACH
--- NOTE | 2020-08-08 05:00 | NUR ---
PT COMPOSITION MIXER LIGHT, REPORTS SHE HAD HER O2 OFF WHEN SHE WOKE UP, O2 SAT 84, RESP TO ROOM, PT DENIES NEED FOR TREATMENT, RESP INCREASES O2 TO 5L
[2020-08-08 07:13] LABS: BASOPHILS 0.4 % (0-2); EOSINOPHILS 1.3 % (0-7); HEMATOCRIT 46.4 % (36.0-48.0); HEMOGLOBIN 15.8 g/dL (12-16); LYMPHOCYTES 14.4 % (15-50); MCHC 34.1 g/dL (31.0-37.0); MCV 96.8 fL (80.0-100.0); MEAN PLATELET VOLUME 8.6 fL (7.4-10.4); MONOCYTES 7.6 % (2-11); NEUTROPHILS 76.3 % (40-80); PLATELET COUNT 324 10x3/uL (130-400); RBC 4.79 10x6/uL (4.00-5.40); RDW 12.3 % (11.5-14.5); WBC 11.6 10x3/uL (4.8-10.8)
--- NOTE | 2020-08-08 07:30 | NUR ---
PT RESTING IN BED WITH EYES OPEN CALL LIGHT IN REACH NO PROBLEMS WILL MONITER
[2020-08-08 07:54] LABS: CALCIUM 10.6 mg/dL (8.5-10.1); CARBON DIOXIDE 36.7 mmol/L (21.0-32.0); CREATININE - SERUM 0.9 mg/dL (0.6-1.3); POTASSIUM - SERUM 3.7 mmol/L (3.5-5.1)
[2020-08-08 08:00] VITALS: BP 113/55
--- NOTE | 2020-08-08 13:59 | NUR ---
PATIENT DISCHARGING HOME IN THE AM 08/09/20. [facility] WILL PROVIDE THERAPY AT HOME. NO NEW DME NEEDED AT THIS TIME. DANIEL SIGNED, IMM SERVED AND EXPLAINED, ONE GIVEN TO PATIENT AND ONE FILED IN CHART. DR. CRANDALL 08/13/20 @ 9:40, DR. WATSON 09/17/20 @ 11:30. DISCHARGE INSTRUCTIONS FAXED TO PCP, HOME HEALTH AND REVIEWED WITH PATIENT.
--- NOTE | 2020-08-08 18:27 | NUR ---
PT RESTING IN BED WITH EYES OPEN CALL LIGHT IN REACH WILL MONITER
--- NOTE | 2020-08-08 20:00 | NUR ---
PATIENT RECEIVED SITTING UP IN BED. ASSESSMENT & VITAL SIGNS DONE. NO C/O PAIN OR DISTRESS. BED LOW. ALARM ON. CALL LIGHT WITHIN REACH. WILL CONTINUE TO MONITOR.
[2020-08-08 21:13] VITALS: BP 91/44
--- NOTE | 2020-08-09 03:19 | NUR ---
PATIENT EYES CLOSED. RESPIRATIONS 18 & EVEN. BED LOW. CALL LIGHT WITHIN REACH. WILL CONTINUE TO MONITOR.
--- NOTE | 2020-08-09 05:43 | NUR ---
I have reviewed this patient and I concur with the Shift Assessment completed by the Licensed Practical Nurse today this shift.
[2020-08-09 07:28] VITALS: BP 129/66
--- NOTE | 2020-08-09 07:35 | NUR ---
SHE IS SETTING UP IN THE WHEELCHAIR. SHE IS WEARING 4 LITERS OF OXYGEN PER NC LIKE AT HOME. SHE IS DISCHARGING TODAY. THE CALL LIGHT IS WITHIN REACH.
== END 2020-08-09 11:00 | disposition home health service (06) | DRG 91 ==
LOC: D.REHAB 17:04
PROVIDERS: ADMIT Emergency Medicine; ATTEND Emergency Medicine
DX: G72.9 Myopathy, unspecified (principal); J18.9 Pneumonia, unspecified organism; M19.90 Unspecified osteoarthritis, unspecified site; I25.10 Atherosclerotic heart disease of native coronary artery without angina pectoris; J43.9 Emphysema, unspecified; R09.02 Hypoxemia; I50.9 Heart failure, unspecified; R53.81 Other malaise; K21.9 Gastro-esophageal reflux disease without esophagitis